=== PATIENT | male | born 1995 | race Caucasian/White ===

== ENCOUNTER 2024-04-14 13:54 | Emergency (ER) | payer OTHER ==
[~2024-04-14] VITALS: Ht 185.4 cm; Wt 113.6 kg
[2024-04-14 16:01] VITALS: TEMP 98.5
[2024-04-14 17:06] LABS: BASOPHILS % (AUTO) 0.9 % (0.0-2.0); EOSINOPHILS % (AUTO) 0.9 % (1.0-6.0); HEMATOCRIT 44.3 % (41-53); HEMOGLOBIN 15.1 g/dL (13.5-17.5); LYMPHOCYTES # (AUTO) 1.7 K/uL (1.0-4.8); LYMPHOCYTES % (AUTO) 20.5 % (22.0-44.0); MEAN CORPUSCULAR HEMOGLOBIN 31.8 pg (26.0-34.0); MEAN CORPUSCULAR HGB CONC 34.1 G/dL (31.0-37.0); MEAN CORPUSCULAR VOLUME 93 fL (80-100); MONOCYTES # (AUTO) 0.9 K/uL (0.1-1.0); MONOCYTES % (AUTO) 11.2 % (2.0-9.0); NEUTROPHILS # (AUTO) 5.6 K/uL (1.8-7.7); NEUTROPHILS % (AUTO) 66.5 % (40.0-70.0); PLATELET COUNT (AUTO) 229 K/uL (150-450); RED BLOOD CELL COUNT(AUTO) 4.75 MIL/uL (4.50-5.90); WHITE BLOOD COUNT (AUTO) 8.4 K/uL (4.5-11.0)
[2024-04-14 17:10] LABS: ANION GAP 6 mmol/L (8-16); CALCIUM, TOTAL 8.7 mg/dL (8.8-10.5); CARBON DIOXIDE 29 mmol/L (22-29); CHLORIDE 101 mmol/L (98-107); CREATININE 1.19 mg/dL (0.60-1.30); GLOMERULAR FILTR. RATE CALC > 60 mL/min (>60); GLUCOSE,RANDOM 98 mg/dL (70-110); POTASSIUM 4.6 mmol/L (3.5-5.1); SODIUM SERUM 136 mmol/L (136-145); UREA NITROGEN, BLOOD 15 mg/dL (7-18)
[2024-04-14 18:20] VITALS: BP 127/81; PULSE 72; RESP 18; O2SAT 99
== END 2024-04-14 18:34 | disposition home or self-care (01) ==
LOC: EMS 13:54
DX: L08.9 Local infection of the skin and subcutaneous tissue, unspecified (principal); F12.90 Cannabis use, unspecified, uncomplicated
CPT/HCPCS: 80048; 85025; 99284